=== PATIENT | female | born 1985 | race African-American/Black ===

== ENCOUNTER 2021-11-04 14:30 | Emergency (ER) | payer OTHER | END 2021-11-04 16:20 | disposition home or self-care (01) | LOC: CSHERS 14:30 | DX: N63.0 Unspecified lump in unspecified breast (principal); I10 Essential (primary) hypertension | CPT/HCPCS: 99282 ==

== ENCOUNTER 2022-11-17 11:56 | Emergency (ER) | payer OTHER ==
[2022-11-17] MEDS ORDERED: Famotidine 20 MG TAB ONE (12:45)
[2022-11-17] MEDS ORDERED: Mag-Al Plus 1200 MG/1200 MG/120 MG/30 ML UDCUP ONE (12:46)
[2022-11-17 12:53] LABS: ALT (SGPT) 8 U/L (8-55); AST (SGOT) 13 U/L (5-34); Albumin 3.9 g/dL (3.5-5.0); Alkaline Phosphatase 72 U/L (40-110); Anion Gap 13 mmol/L (10-20); BUN (Urea Nitrogen) 6 mg/dL (7.0-18.7); Bilirubin, Total 0.3 mg/dL (0.2-1.2); Calc. Creatinine Clearance 0 mL/min (70-130); Calcium 8.9 mg/dL (7.8-10.44); Carbon Dioxide 24 mmol/L (22-29); Chloride 105 mmol/L (98-107); Estimated GFR 97; Globulin 3.7 g/dL (2.4-3.5); Glucose 92 mg/dL (70-105); Lipase 37 U/L (8-78); Protein, Total 7.6 g/dL (6.0-8.3); Sodium 138 mmol/L (136-145)
[2022-11-17 13:06] LABS: Troponin I Less than 0.010 ng/mL (< 0.028)
[2022-11-17 13:36] LABS: #Eosinphils 0.2 10x3/uL (0.0-0.5); #Monocytes 0.5 10x3/uL (0.0-1.1); #Neutrophils 8.5 10x3/uL (1.5-8.4); %Basophils 0.3 % (0.0-2.0); %Eosinophils 1.5 % (0.0-6.0); %Lymphocytes 18.6 % (18.0-47.0); %Monocytes 4.3 % (0.0-10.0); %Neutrophils 74.9 % (40.0-75.0); Hematocrit 38.4 % (34.9-44.5); Hemoglobin 12.3 g/dL (12.0-15.5); Mean Corpuscular Hemoglobin 26.9 pg (27.0-33.0); Mean Corpuscular Volume 83.8 fl (81.6-98.3); Mean Platelet Volume 10.9 fl (7.4-10.4); Platelet Count 331 10x3/uL (150-450); RBC Distribution Width 14.4 % (11.5-14.5); Red Blood Cell (RBC) Count 4.58 10x6/uL (3.90-5.03); White Blood Cell (WBC) Count 11.3 10x3/uL (3.5-10.5)
== END 2022-11-17 13:45 | disposition home or self-care (01) ==
LOC: CSHERS 11:56
DX: K29.60 Other gastritis without bleeding (principal); R10.13 Epigastric pain; I10 Essential (primary) hypertension
CPT/HCPCS: 71045; 80053; 83690; 84484; 85025; 93005; 93010

== ENCOUNTER 2023-02-25 21:38 | Emergency (ER) | payer OTHER, BC ==
[2023-02-25] MEDS ORDERED: Ketorolac Tromethamine 30 MG/ML VIAL ONE (22:10)
[2023-02-25] MEDS ORDERED: tiZANidine HCl 4 MG TAB PO SCH (22:15)
== END 2023-02-25 23:00 | disposition home or self-care (01) ==
LOC: CSHERS 21:38
DX: M25.562 Pain in left knee (principal); I10 Essential (primary) hypertension
CPT/HCPCS: 96372; J1885

== ENCOUNTER 2023-09-22 23:02 | Emergency (ER) | payer OTHER ==
[2023-09-23 02:19] LABS: Bilirubin Neg (Negative); Blood, Urine 150 (Negative); Clarity Clear (Clear); Glucose, Urine (Dipstick) Normal (Negative); Ketone, Urine Negative (Negative); Leukocyte Negative (Negative); Nitrite Negative (Negative); Protein, Urine (Dipstick) Negative (Neg-Trace); Urobilinogen Normal mg/dL (Less than 2); pH, Urine 6.5 (5.0-9.0)
[2023-09-23 02:21] LABS: Pregnancy Test - Urine (BHCG) Negative (Negative); Pregu Control Background? CLEAR/WHITE (CLR/WHITE); Pregu Control Bar Appear? YES (CONTROL BAR)
[2023-09-23 02:28] LABS: Bacteria/HPF None Seen HPF (None Seen); CAUTI Indications for Culture Pelvic or flank pain; Squamous Epithelial 0-3 HPF (0-3); Urine Culture Reflex No No; WBC/HPF None Seen HPF (0-3)
== END 2023-09-23 02:42 | disposition home or self-care (01) ==
LOC: CSHERS 23:02
DX: N94.6 Dysmenorrhea, unspecified (principal); E11.9 Type 2 diabetes mellitus without complications; E66.9 Obesity, unspecified; I10 Essential (primary) hypertension; Z79.899 Other long term (current) drug therapy; Z79.84 Long term (current) use of oral hypoglycemic drugs
CPT/HCPCS: 81001; 81025; 99284

== ENCOUNTER 2023-12-15 20:45 | Inpatient (IN) | payer MEDICARE ==
[2023-12-15] MEDS ORDERED: Ketorolac Tromethamine 30 MG (1 mL) VIAL ONE (21:27)
[2023-12-15 21:52] LABS: #Basophils 0.05 10x3/uL (0.0-0.2); #Eosinophils 0.18 10x3/uL (0.0-0.5); #Monocytes 1.05 10x3/uL (0.0-1.1); #Neutrophils 15.39 10x3/uL (1.5-8.4); %Basophils 0.3 % (0.0-2.0); %Lymphocytes 8.1 % (18.0-47.0); %Monocytes 5.8 % (0.0-10.0); %Neutrophils 84.4 % (40.0-75.0); Hematocrit 36.2 % (34.9-44.5); Hemoglobin 12.2 g/dL (12.0-15.5); Mean Corpuscular HGB CONC 33.7 g/dL (32.0-36.0); Mean Corpuscular Hemoglobin 28.6 pg (27.0-33.0); Mean Corpuscular Volume 84.8 fL (81.6-98.3); Mean Platelet Volume 10.8 fL (7.4-10.4); Platelet Count 279 10x3/uL (150-450); RBC Distribution Width 13.8 % (11.5-14.5); Red Blood Cell (RBC) Count 4.27 10x6/uL (3.90-5.03); White Blood Cell (WBC) Count 18.2 10x3/uL (3.5-10.5)
[2023-12-15 22:02] LABS: Anion Gap 12 mmol/L (10-20); BUN (Urea Nitrogen) 7 mg/dL (7.0-18.7); Calc. Creatinine Clearance 0 mL/min (70-130); Carbon Dioxide 26 mmol/L (22-29); Chloride 103 mmol/L (98-107); Estimated GFR 81; Glucose 116 mg/dL (70-105); Sodium 138 mmol/L (136-145)
[2023-12-15] MEDS ORDERED: Potassium Chloride 20 MEQ TAB ONE (22:27)
[2023-12-15 22:41] LABS: CK (CPK) 107 U/L (29-168); Magnesium 1.7 mg/dL (1.6-2.6)
[2023-12-15 23:26] LABS: ALT (SGPT) 9 U/L (8-55); AST (SGOT) 14 U/L (5-34); Albumin 3.3 g/dL (3.5-5.0); Alkaline Phosphatase 74 U/L (40-110); Bilirubin, Direct 0.2 mg/dL (0.1-0.3); Bilirubin, Total 0.3 mg/dL (0.2-1.2); Lipase 29 U/L (8-78); Protein, Total 6.9 g/dL (6.0-8.3)
[2023-12-16] MEDS ORDERED: Acetaminophen 500 MG TAB ONE (00:42)
[2023-12-16] MEDS ORDERED: Ondansetron ODT 4 MG TAB PO PRN (02:04)
[2023-12-16] MEDS ORDERED: Cefepime 2 GM VIAL ONE (02:07)
[2023-12-16] MEDS ORDERED: Dextrose 5% in Water 1,000 ML IV PRN (02:38)
[2023-12-16] MEDS ORDERED: Dextrose 50% Abboject 50 ML SYRINGE SLOW IVP PRN (02:38)
[2023-12-16] MEDS ORDERED: Insulin Lispro 100 UNIT/ML 10 ML VIAL SC PRN ×2 (02:38)
[2023-12-16] MEDS ORDERED: Glucagon 1 MG/ML KIT IM PRN (02:38)
[2023-12-16 02:41] LABS: #Basophils 0.03 10x3/uL (0.0-0.2); #Eosinophils 0.14 10x3/uL (0.0-0.5); #Monocytes 1.18 10x3/uL (0.0-1.1); #Neutrophils 16.53 10x3/uL (1.5-8.4); %Basophils 0.2 % (0.0-2.0); %Eosinophils 0.7 % (0.0-6.0); %Lymphocytes 8.6 % (18.0-47.0); Hematocrit 37.2 % (34.9-44.5); Hemoglobin 12.1 g/dL (12.0-15.5); Mean Corpuscular HGB CONC 32.5 g/dL (32.0-36.0); Mean Corpuscular Hemoglobin 27.9 pg (27.0-33.0); Mean Corpuscular Volume 85.7 fL (81.6-98.3); Mean Platelet Volume 10.9 fL (7.4-10.4); Platelet Count 260 10x3/uL (150-450); RBC Distribution Width 13.7 % (11.5-14.5); Red Blood Cell (RBC) Count 4.34 10x6/uL (3.90-5.03); White Blood Cell (WBC) Count 19.7 10x3/uL (3.5-10.5)
[2023-12-16 02:57] LABS: ALT (SGPT) 9 U/L (8-55); AST (SGOT) 14 U/L (5-34); Albumin 3.1 g/dL (3.5-5.0); Alkaline Phosphatase 72 U/L (40-110); Anion Gap 13 mmol/L (10-20); BUN (Urea Nitrogen) 5 mg/dL (7.0-18.7); Bilirubin, Total 0.3 mg/dL (0.2-1.2); Calc. Creatinine Clearance 0 mL/min (70-130); Calcium 8.6 mg/dL (7.8-10.44); Carbon Dioxide 24 mmol/L (22-29); Chloride 107 mmol/L (98-107); Estimated GFR 93; Globulin 3.7 g/dL (2.4-3.5); Glucose 108 mg/dL (70-105); Potassium 3.5 mmol/L (3.5-5.1); Protein, Total 6.8 g/dL (6.0-8.3); Sodium 140 mmol/L (136-145)
[2023-12-16] MEDS ORDERED: cefTRIAXone\\ROCEPHIN 1 GM in Sodium Chloride 0.9% 100 ML IVPB SCH (03:00)
[2023-12-16 03:23] VITALS: BMI 43.9
[2023-12-16] MEDS: Sodium Chloride 0.9% 1,000 ML IV SCH (03:43)
[2023-12-16] MEDS: methylPREDNISolone Sod Succ/PF 125 MG/2 ML VIAL IVP SCH (03:44)
[2023-12-16] MEDS: cefTRIAXone\\ROCEPHIN 2 GM in Sodium Chloride 0.9% 100 ML IVPB SCH (03:44)
[2023-12-16] MEDS: Vancomycin 2.5 GM in Sodium Chloride 0.9% 500 ML IVPB ONE (03:45)
[2023-12-16] MEDS: Ondansetron PF 4 MG/2 ML Vial IVP PRN (04:14)
[2023-12-16] MEDS: Clindamycin/D5W 600 MG in Premix 1 BAG IVPB SCH (06:10)
[2023-12-16] MEDS: Enoxaparin 40 MG (0.4 mL) SYRINGE SC SCH (08:50)
[2023-12-16] MEDS: Famotidine 20 MG TAB PO SCH (08:51)
[2023-12-16] MEDS: Spironolactone 25 MG TAB PO SCH (09:40)
[2023-12-16] MEDS: Lisinopril 10 MG TAB PO SCH (09:40)
[2023-12-16] MEDS: Acetaminophen 325 MG TAB PO PRN (09:41)
[2023-12-16] MEDS ORDERED: Iopamidol 370 76% 100 ML VIAL ONE (11:59)
[2023-12-16] MEDS: FLU (Fluarix Triv) TS24-25(6MOS UP)/PF 45 MCG/0.5 ML Syringe IM ONE (16:32)
[2023-12-16] MEDS: Benzocaine/Menthol 1 LOZ LOZ PO PRN (16:32)
[2023-12-16] MEDS: Vancomycin 1 GM in Sodium Chloride 0.9% 250 ML 250 ML IVPB SCH (17:04)
[2023-12-16] MEDS ORDERED: methylPREDNISolone Sod Succ 40 MG VIAL IVP SCH (18:00)
[2023-12-16] MEDS: Saccharomyces boulardii 250 MG CAP PO SCH (22:40)
[2023-12-17 04:48] LABS: Hematocrit 37.6 % (34.9-44.5); Hemoglobin 12.2 g/dL (12.0-15.5); Mean Corpuscular HGB CONC 32.4 g/dL (32.0-36.0); Mean Corpuscular Hemoglobin 27.7 pg (27.0-33.0); Mean Corpuscular Volume 85.3 fL (81.6-98.3); Mean Platelet Volume 10.8 fL (7.4-10.4); Platelet Count 298 10x3/uL (150-450); RBC Distribution Width 13.7 % (11.5-14.5); Red Blood Cell (RBC) Count 4.41 10x6/uL (3.90-5.03); White Blood Cell (WBC) Count 26.2 10x3/uL (3.5-10.5)
[2023-12-17 05:03] LABS: Anion Gap 15 mmol/L (10-20); BUN (Urea Nitrogen) 7 mg/dL (7.0-18.7); Calc. Creatinine Clearance 160 mL/min (70-130); Calcium 8.6 mg/dL (7.8-10.44); Carbon Dioxide 23 mmol/L (22-29); Chloride 106 mmol/L (98-107); Estimated GFR 95; Glucose 121 mg/dL (70-105); Potassium 3.6 mmol/L (3.5-5.1); Sodium 140 mmol/L (136-145)
[2023-12-17 05:37] LABS: Band 10 % (5-11); Eosinophils 1 % (0-10); Lymphocytes 9 % (21-51); Monocytes 5 % (0-10); Neutrophil 75 % (42-75); Platelet Adequacy Comment Appears Adequate; RBC Morph Comment Within Normal Limits
[2023-12-17 05:38] LABS: MDiff Complete? YES
[2023-12-17] MEDS: Vancomycin HCl 500 MG in Sodium Chloride 0.9% 100 ML IVPB SCH (08:02)
[2023-12-17] MEDS ORDERED: VANCOMYCIN 1.5 GM, Admixture Fee 1 EACH in Sodium Chloride 0.9% 500 ML IVPB SCH (09:00)
[2023-12-17] MEDS: cloNIDine 0.1 MG TAB PO PRN (13:06)
[2023-12-17] MEDS ORDERED: Vancomycin 1 GM in Premix 1 BAG IVPB SCH (21:00)
[2023-12-17] MEDS: Lisinopril 10 MG TAB PO SCH (21:11)
[2023-12-17] MEDS: Doxycycline 100 MG CAP PO SCH (21:12)
[2023-12-17] MEDS: Clindamycin/D5W 900 MG in Premix 1 BAG IVPB SCH (21:19)
[2023-12-17] MEDS: Vancomycin 1 GM in Sodium Chloride 0.9% 250 ML 250 ML IVPB SCH ×2 (22:53→23:57)
[2023-12-18] MEDS: traMADol HCl 50 MG TAB PO PRN (01:33)
[2023-12-18 03:50] LABS: #Basophils 0.07 10x3/uL (0.0-0.2); #Eosinophils 0.34 10x3/uL (0.0-0.5); #Neutrophils 8.92 10x3/uL (1.5-8.4); %Basophils 0.5 % (0.0-2.0); %Eosinophils 2.4 % (0.0-6.0); %Lymphocytes 27.4 % (18.0-47.0); %Monocytes 6.3 % (0.0-10.0); %Neutrophils 61.9 % (40.0-75.0); Hematocrit 37.4 % (34.9-44.5); Hemoglobin 12.1 g/dL (12.0-15.5); Mean Corpuscular HGB CONC 32.4 g/dL (32.0-36.0); Mean Corpuscular Hemoglobin 27.8 pg (27.0-33.0); Mean Corpuscular Volume 85.8 fL (81.6-98.3); Mean Platelet Volume 10.7 fL (7.4-10.4); Platelet Count 321 10x3/uL (150-450); RBC Distribution Width 13.9 % (11.5-14.5); Red Blood Cell (RBC) Count 4.36 10x6/uL (3.90-5.03); White Blood Cell (WBC) Count 14.4 10x3/uL (3.5-10.5)
[2023-12-18 03:51] LABS: Anion Gap 16 mmol/L (10-20); BUN (Urea Nitrogen) 7 mg/dL (7.0-18.7); Calc. Creatinine Clearance 167 mL/min (70-130); Calcium 8.1 mg/dL (7.8-10.44); Carbon Dioxide 23 mmol/L (22-29); Chloride 106 mmol/L (98-107); Estimated GFR 99; Glucose 90 mg/dL (70-105); Potassium 3.5 mmol/L (3.5-5.1); Sodium 141 mmol/L (136-145)
[2023-12-18 04:03] LABS: Vancomycin, Random 15.9 ug/mL (See Comment)
[2023-12-18 07:09] LABS: Legionella Urinary Ag Negative (Negative)
[2023-12-18] MEDS: VANCOMYCIN 1.5 GM in Sodium Chloride 0.9% 500 ML IVPB SCH (10:16)
[2023-12-18] MEDS: metFORMIN 500 MG TAB PO SCH (16:54)
[2023-12-18] MEDS ORDERED: Saccharomyces boulardii 250 MG CAP PO SCH (17:30)
[2023-12-18] MEDS: Loperamide HCl 2 MG CAP PO SCH (18:59)
[2023-12-18] MEDS ORDERED: VANCOMYCIN 1.25 GM in Sodium Chloride 0.9% 250 ML 250 ML IVPB SCH (21:00)
[2023-12-19 04:04] LABS: #Basophils 0.11 10x3/uL (0.0-0.2); #Monocytes 0.92 10x3/uL (0.0-1.1); #Neutrophils 8.08 10x3/uL (1.5-8.4); %Basophils 0.8 % (0.0-2.0); %Eosinophils 3.4 % (0.0-6.0); %Lymphocytes 29.6 % (18.0-47.0); %Monocytes 6.3 % (0.0-10.0); %Neutrophils 55.7 % (40.0-75.0); Hematocrit 37.7 % (34.9-44.5); Hemoglobin 11.9 g/dL (12.0-15.5); Mean Corpuscular HGB CONC 31.6 g/dL (32.0-36.0); Mean Corpuscular Hemoglobin 27.1 pg (27.0-33.0); Mean Corpuscular Volume 85.9 fL (81.6-98.3); Mean Platelet Volume 10.5 fL (7.4-10.4); Platelet Count 370 10x3/uL (150-450); RBC Distribution Width 14.1 % (11.5-14.5); Red Blood Cell (RBC) Count 4.39 10x6/uL (3.90-5.03); White Blood Cell (WBC) Count 14.5 10x3/uL (3.5-10.5)
[2023-12-19 04:28] LABS: Anion Gap 11 mmol/L (10-20); BUN (Urea Nitrogen) 7 mg/dL (7.0-18.7); Calc. Creatinine Clearance 165 mL/min (70-130); Calcium 8.7 mg/dL (7.8-10.44); Carbon Dioxide 28 mmol/L (22-29); Chloride 103 mmol/L (98-107); Estimated GFR 98; Glucose 86 mg/dL (70-105); Potassium 3.3 mmol/L (3.5-5.1); Sodium 139 mmol/L (136-145)
[2023-12-19 08:23] VITALS: BP 151/92; TEMP 97.9
[2023-12-20 21:38] LABS: Mycoplasma pneumoniae IgG AB 408 U/mL (0-99); Mycoplasma pneumoniae IgM AB Less than 770 U/mL (0-769)
== END 2023-12-19 09:23 | disposition home or self-care (01) | DRG 871 ==
LOC: CSHERS 20:45 → CSHTELE 12-16 02:07 → OBSVTOIN 12-16 09:41
PROVIDERS: ADMIT Internal Medicine; ATTEND Family Medicine
DX: A40.9 Streptococcal sepsis, unspecified (principal); G93.41 Metabolic encephalopathy; Z68.41 Body mass index [BMI] 40.0-44.9, adult; E11.9 Type 2 diabetes mellitus without complications; R65.20 Severe sepsis without septic shock; I10 Essential (primary) hypertension; F32.A Depression, unspecified; J02.0 Streptococcal pharyngitis; E87.6 Hypokalemia; E83.42 Hypomagnesemia; E66.01 Morbid (severe) obesity due to excess calories
CPT/HCPCS: 36415; 36416; 70450; 71045; 71275; 80048; 80053; 80076; 80202; 82550; 83605; 83690; 83735; 84145; 85025; 85379; 86140; 87040; 87430; 87899; 93005; 93010; 96365; 96372; 96375; G0378; J0692; J0696; J1650; J1885; J2405; J2919; J3370; J3490; J7030; J7050; Q9967

== ENCOUNTER 2024-02-07 10:42 | Emergency (ER) | payer MEDICARE | END 2024-02-07 11:31 | disposition home or self-care (01) | LOC: CSHERS 10:42 | DX: J11.1 Influenza due to unidentified influenza virus with other respiratory manifestations (principal); E11.9 Type 2 diabetes mellitus without complications; I10 Essential (primary) hypertension | CPT/HCPCS: 99283 ==